=== PATIENT | female | born 1960 | race Caucasian/White ===

== ENCOUNTER 2023-09-06 19:53 | Inpatient (IN) | payer BC, SELFPAY ==
--- NOTE | ~2023-09-06 | CT_ITS ---
EXAMINATION: CT SOFT TISSUE NECK WITH CONTRAST CLINICAL INFORMATION: Reason thyroid. Pain COMPARISON: None available. TECHNIQUE: Following the intravenous administration of 100 mL of Omnipaque 350 intravenous contrast, helical imaging was performed in the axial plane with generation of coronal and sagittal reformatted images. This CT examination was performed using dose optimization techniques as appropriate, variously including the following: *Automated exposure control *Adjustment of mA and/or kV according to patient size (this includes techniques or standardized protocols for targeted exams where dose is matched to indication/reason for exam; i.e. extremities or head) *Use of iterative reconstruction technique DLP: 916 MGy-cm FINDINGS: The nasopharynx, oropharynx and hypopharynx are within normal limits. The parotid glands, and submandibular glands are unremarkable. There is a collection in the region of the anterior thyroid at the level of the thyroid isthmus measuring 2.7 x 1.5 x 1.5 cm. There is no significant lymph node enlargement. The vascular structures are grossly unremarkable. There is bilateral maxillary sinus mucosal thickening. There is a small sphenoid sinus opacity. The orbital structures are unremarkable. The visualized intracranial structures are unremarkable. The visualized upper lung esquivel are clear. There is skin thickening and subcutaneous emphysema along the lower anterior neck at the level of the thyroid. CT/CT soft tissue neck w IV con IMPRESSION: 1. There is a collection in the region of the anterior thyroid measuring 2.7 x 1.5 x 1.5 which may be postoperative patient history. Overlying soft tissue swelling is noted also likely postoperative. 2. No other significant abnormality seen.
--- NOTE | ~2023-09-06 | CT_ITS ---
EXAMINATION: CT ABDOMEN AND PELVIS WITHOUT CONTRAST CLINICAL INFORMATION: Abdominal pain COMPARISON: CT chest 09/07/2023. TECHNIQUE: Multidetector volumetric imaging was performed from the superior aspect of the liver through the pubic symphysis. Sagittal and coronal reformatted images were obtained on the technologist's workstation. This CT examination was performed using dose optimization techniques as appropriate, variously including the following: *Automated exposure control *Adjustment of mA and/or kV according to patient size (this includes techniques or standardized protocols for targeted exams where dose is matched to indication/reason for exam; i.e. extremities or head) *Use of iterative reconstruction technique DLP: 652 mGy-cm FINDINGS: There is a ill-defined opacity left lower lobe anterior segment with central cavitation and stranding extending to the pleural surface. The right lung base is clear. LIVER, GALLBLADDER, AND BILIARY TREE: The liver is normal in size, shape, and attenuation. No focal hepatic lesion or biliary ductal dilatation is present. The gallbladder is unremarkable with no evidence of radiopaque gallstones, gallbladder wall thickening, or obvious pericholecystic inflammatory changes. PANCREAS: Unremarkable. SPLEEN: Unremarkable. ADRENAL GLANDS: Unremarkable. KIDNEYS AND URETERS: The kidneys are normal in size, shape, and attenuation. No hydronephrosis, hydroureter, or calculi seen. No perinephric stranding. There is contrast opacifying bilateral calyces and proximal ureters without any dilation or intraluminal filling defect. Contrast visualizes from recent CT chest exam. BLADDER: The bladder is nondistended with excreted urinary contrast visualized. GASTROINTESTINAL TRACT: There is scattered stool and gas seen throughout the colon without any significant distention. Nonspecific intramural fat is seen in the ascending colon. The small bowel loops are normal caliber. Appendix is not visualized. ABDOMINAL WALL: A small medical hernia containing fat is noted. LYMPH NODES: No abnormal size retroperitoneal lymph nodes or mass seen. VASCULAR: Unremarkable. PELVIC VISCERA: There is a 2.6 cm left ovarian cyst. As no free fluid in the cul-de-sac. No pelvic lymph nodes or mass seen. OSSEOUS STRUCTURES: Degenerative disc changes with vacuum disc phenomena L3-for L4-L5 disc level. There is posterior spondylosis L3-L4 disc level. This are glass deformity L4 vertebra likely from old fracture. CT/CT abdomen pelvis wo IV con IMPRESSION: 1. No acute intra-abdominal process seen. 2. Mild constipation. 3. Left ovarian cyst. 4. Small umbilical hernia containing fat. 5. There is a ill-defined opacity left lower lobe anterior segment with central cavitation and stranding extending to the pleural surface. The fracture fragments includes infiltrate versus cavitating nodule. This was visualized on earlier CT chest exam. Also noted were multiple small pulmonary nodules. Recommend follow-up CT chest after antibiotic therapy in 6 weeks to 3 months Fleischner guidelines were followed.
--- NOTE | ~2023-09-06 | CT_ITS ---
EXAMINATION: CT ANGIOGRAM OF THE CHEST WITH AND WITHOUT CONTRAST (CT PULMONARY ANGIOGRAM FOR PE) CLINICAL INFORMATION: Reason for Exam SOB, tachycardia COMPARISON: None available. TECHNIQUE: Prior to contrast administration, noncontrast localization images were obtained. Subsequently, multidetector volumetric imaging was performed from the thoracic inlet to below the diaphragms following the administration of 85 mL Omnipaque 350 intravenous contrast. No contrast reaction reported Sagittal, coronal, and MIP oblique sagittal reformatted images were obtained on the CT workstation, uploaded to PACS, and reviewed. This CT examination was performed using dose optimization techniques as appropriate, variously including the following: *Automated exposure control *Adjustment of mA and/or kV according to patient size (this includes techniques or standardized protocols for targeted exams where dose is matched to indication/reason for exam; i.e. extremities or head) *Use of iterative reconstruction technique Total exam dose-length product 916 mGy-cm FINDINGS: QUALITY OF STUDY/CONTRAST BOLUS: Satisfactory. PULMONARY ARTERIES: No pulmonary emboli. THORACIC AORTA: No aneurysm. LUNG: There is bilateral bronchial thickening. There is a small left lower lung field infiltrate covering an area approximately 3 cm. There are essentially innumerable bilateral faint nodular densities measuring 1 to 5 mm. PLEURA: No pleural effusion or pneumothorax. MEDIASTINUM: Normal heart size. No pericardial effusion. There are a few nonspecific mediastinal lymph nodes measuring up to 1.6 cm. No evidence of septal bowing or right heart strain. CORONARY ARTERY CALCIFICATION: None visualized on this study. CHEST WALL/AXILLA: No axillary or internal mammary lymphadenopathy. OSSEOUS STRUCTURES: No acute or suspicious osseous abnormality. UPPER ABDOMEN: Unremarkable. No reflux of contrast into the hepatic veins to suggest elevated right heart pressures. CT/CT angio chest PE protocol IMPRESSION: 1. No evidence of PE. 2. Small left lower lung field infiltrate. Pneumonia is suspected. Consider a 1-2 month follow-up posttreatment. 3. There is bilateral bronchial thickening which may be seen with bronchitis. There are innumerable bilateral faint nodular densities measuring 1 to 5 cm possibly be secondary to to an atypical infectious process. 4. VTE: negative.
--- NOTE | ~2023-09-06 | XR_ITS ---
EXAMINATION: XR CHEST CLINICAL INFORMATION: Chest pain. COMPARISON: Chest radiograph dated 09/01/2023. TECHNIQUE: Frontal view of the chest was obtained. FINDINGS: Heart size is normal. The lungs are clear. No pleural effusion or pneumothorax. XR/XR chest 1V IMPRESSION: No acute cardiopulmonary disease.
[2023-09-06 20:09] VITALS: BP 170/84; BP 171/85; PULSE 110; PULSE 99; RESP 14; TEMP 36.8; O2SAT 94; O2SAT 99; BMI 34.4
--- NOTE | 2023-09-06 20:15 | ECG_ITS ---
Test Reason : SOB Blood Pressure : / mmHG Vent. Rate : 091 BPM Atrial Rate : 091 BPM P-R Int : 154 ms QRS Dur : 080 ms QT Int : 376 ms P-R-T Axes : 059 059 048 degrees QTc Int : 462 ms Normal sinus rhythm Nonspecific ST and T wave abnormality Abnormal ECG No previous ECGs available Referred By: Generic ED Physician Electronically Signed By:William Jean
--- NOTE | 2023-09-06 20:50 | ED_ITS ---
HPI - URI/Sore Throat General Chief Complaint: Upper Respiratory Symptoms Stated Complaint: SOB,resp symptoms x2wks,wheezing Time Seen by Provider: 09/06/23 20:11 History of Present Illness HPI Narrative: Patient is a 63-year-old female presents today with having coughing congestion upper respiratory symptoms shortness of breath that has been ongoing for over week. Had thyroid surgery July 28. Cough productive of whitish sputum. Had x-ray done earlier at urgent care did not show any acute infiltrate. Patient was given a treatment sent to the emergency department for further evaluation did not complain of any swelling in the legs. Does need to sit up because of the shortness of breath. There has no fever. Patient is vaccinated for COVID. No diaphoresis. No chest pain. Patient is from home. No history of asthma in the past. No history of congestive heart failure in the past. No heart attack in the past. Related Data Allergies Allergy/AdvReac Type Severity Reaction Status Date / Time No Known Allergies Allergy Verified 09/06/23 20:41 Review of Systems 2 Review of Systems: Positive coughing upper respiratory symptoms Yes all other systems are reviewed and are negative [facility] Past Medical History Attestation statement: The following information was validated with the patient. Social History Social History Advance Directives: No Advance Directives Information Provided: No Physical Exam 2 Vital Signs: Vital Signs: Last Vital Signs Temp 98.2 F 09/06/23 20:09 Pulse 113 H 09/06/23 21:24 Resp 33 H 09/06/23 21:24 BP 171/85 H 09/06/23 20:09 Pulse Ox 94 09/06/23 20:09 O2 Del Method Nasal Cannula 09/06/23 20:09 Oxygen Flow Rate 2 09/06/23 20:09 BMI result Body Mass Index 34.4 Appearance: Alert. Oriented X3. No acute distress. Eyes: Pupils equal, round and reactive to light. ENT: Pharynx normal. Neck: Normal inspection. Neck supple. No lymph nodes noted. No crepitus CVS: Normal heart rate and rhythm. Pulses normal. Normal S1 and S2 Respiratory: No respiratory distress. Breath sounds normal. Positive Wheezing. No rales Abdomen: Soft and nontender. No rigidity. No distention. good BS x4 Skin: Skin warm and dry. Normal skin color. Normal skin turgor. Extremities: No lower extremity edema. Neurovascular intact to all extremities. No Lacerations. No Rash Neuro: Oriented X 3. No motor deficit. No sensory deficit. Moving all extermities. No slurred speech Medications Administered Generic Name Dose Route Start Last Admin Trade Name Freq PRN Reason Stop Dose Admin Sodium Chloride 2,558.25 mls @ 2,558.25 mls/hr 09/06/23 21:58 09/06/23 22:05 Ns 30 ml/kg infuse over 1 hr (2558.25 ml) 09/06/23 22:57 2,558.25 mls/hr IV Administration .Q1H STA Discontinued Medications Generic Name Dose Route Start Last Admin Trade Name Freq PRN Reason Stop Dose Admin Albuterol Sulfate 2.5 mg/ 5 mg 09/06/23 20:42 09/06/23 21:23 Albuterol Sulfate 2.5 mg INHALE 09/06/23 20:43 5 mg ONCE ONE Administration Furosemide 40 mg 09/06/23 21:18 09/06/23 21:24 Furosemide 40 Mg/4 Ml Vial IVPUSH 09/06/23 21:19 40 mg ONCE ONE Administration Protocol Ceftriaxone Sodium 1 gm/ 50 mls @ 100 mls/hr 09/06/23 21:21 09/06/23 21:42 Sodium Chloride IV 09/06/23 21:50 100 mls/hr ONCE ONE Administration Methylprednisolone Sodium Succinate 125 mg 09/06/23 20:42 09/06/23 21:22 Methylprednisolone Sod Succ 125 Mg/2 Ml Vial IVPUSH 09/06/23 20:43 125 mg ONCE ONE Administration Morphine Sulfate 2 mg 09/06/23 21:27 09/06/23 21:51 Morphine Sulfate 2 Mg/Ml Cartridge IVPUSH 09/06/23 21:28 2 mg ONCE ONE Administration Protocol Nitroglycerin 1 inch 09/06/23 21:18 09/06/23 21:24 Nitroglycerin 2 % Oint 1 Gm Packet TRANSDERMA 09/06/23 21:19 1 inch ONCE ONE Administration Medical Decision Making Medical Decision Making MDM Narrative: Patient presented with shortness of breath. Wheezing bilaterally getting worse over the last 2 weeks unable to lie flat. An x-ray was done. My interpretation of the x-ray showed no acute infiltrates. Mild intravascular fullness. Patient after the x-ray went to the bathroom. On returning patient's O2 sat was in the 70 appeared blue wheezing more pronounced the diminished breath sounds bilaterally patient was placed on a non-rebreather mask. Respiratory was paged stat. She was started on BiPAP. Question if patient's symptoms secondary to flash pulmonary edema. Lasix was given. Nitro was given. Patient was started on BiPAP. Symptomatically patient improved dramatically cultures are obtained. Antibiotic was started for possible infection. Patient's lactate came back extremely elevated at 6.1. At this time felt patient unstable to give 30 cc/kilos of p.o. fluid. She was given a 7.5 mg albuterol treatment. Steroid was given. Flu RSV COVID are all pending. We will get an ABG on current settings as patient's symptom improving. At 22:30 patient's BNP came back less than 100 less likely this is congestive heart failure no evidence of flash pulmonary edema patient has been on BiPAP for the last half an hour with improvement in symptoms. ABG is being done. Lab Data 09/06/23 22:00 09/06/23 21:24 Labs: Lab Results 09/06/23 09/06/23 09/06/23 Range/Units 21:24 22:00 22:09 WBC 21.8 H (4.8-10.8) X10*3/uL RBC 5.25 (4.20-5.50) X10*6/uL Hgb 15.0 (12.0-16.0) g/dl Hct 45.3 (37.0-47.0) % MCV 86.3 (80.0-98.0) fL MCH 28.6 (27.0-33.0) pg MCHC 33.1 (31.0-35.0) g/dl RDW 12.6 (11.0-16.0) % Plt Count 333 (160-400) X10*3/uL MPV 11.3 (9.4-12.3) fL Immature Gran % (Auto) 0.4 (0.0-0.4) % Neut % (Auto) 77.4 H (45-73) % Lymph % (Auto) 12.0 L (20-40) % [place] % (Auto) 6.0 (2-11) % Eos % (Auto) 4.0 (0-4) % Baso % (Auto) 0.2 (0-2) % Lymph # (Auto) 2.6 (1.2-4.9) X10*3/uL [place] # (Auto) 1.3 H (0.1-1.2) X10*3/uL Eos # (Auto) 0.9 H (0.0-0.4) X10*3/uL Baso # (Auto) 0.0 (0.0-0.2) X10*3/uL Abs Immat Gran (auto) 0.09 H (0.00-0.03) X10*3/uL Absolute Neuts (auto) 16.9 H (2.0-8.3) x10*3/uL Absolute Nucleated RBC 0.000 (0.0-0.012) X10*3/uL Nucleated RBC % (auto) 0.0 (0.0-0.2) /100WBC O2 Saturation % ABG pH at Pt Temp (7.35-7.45) ABG pCO2 at Pt Temp (32-45) mmHg ABG pO2 at Pt Temp (83-108) mmHg ABG HCO3 (22-26) mmol/L ABG Base Excess (Actual) mmol/L Sodium 144 (135-145) mmol/L Potassium 3.9 (3.3-5.1) mmol/L Chloride 110 H (96-108) mmol/L Carbon Dioxide 20 L (22-29) mmol/L Anion Gap 18 (12-20) BUN 11 (9-16) mg/dL Creatinine 0.75 (0.5-1.4) mg/dL Estim Creat Clear Calc 78.7 Estimated GFR > 60 Random Glucose 163 H (60-115) mg/dL Lactic Acid 6.1 H* (0.5-2.0) mmol/L Calcium 9.9 (8.4-10.2) mg/dL Total Bilirubin 0.4 (0.0-1.0) mg/dL AST 14 (5-31) U/L ALT 15 (0-31) U/L Alkaline Phosphatase 119 H (39-117) U/L Troponin I High Sens < 2.7 (<3.5-17.0) ng/L B-Natriuretic Peptide 60 (<100) pg/mL Total Protein 7.8 (6.5-8.0) g/dL Albumin 4.7 (3.5-5.0) g/dL Urine Color Yellow Urine Appearance Clear Urine pH 6.0 (5.0-9.0) Ur Specific [place] <= 1.005 (1.005-1.025) Urine Protein Trace (Neg-Trace) mg/dL Urine Glucose (UA) Negative (Negative) mg/dL Urine Ketones Negative (Negative) mg/dL Urine Blood Negative (Negative) Urine Nitrite Negative (Negative) Ur Leukocyte Esterase Negative (Negative) Urine RBC 0-2 (0-2) /HPF Urine WBC 0-5 (0-5) /HPF Ur Squamous Epith Cells 0-2 (0-2) /HPF Urine Bacteria None Seen (None Seen) Hyaline Casts 0-2 (0-2) /LPF 09/06/23 Range/Units 22:33 WBC (4.8-10.8) X10*3/uL RBC (4.20-5.50) X10*6/uL Hgb (12.0-16.0) g/dl Hct (37.0-47.0) % MCV (80.0-98.0) fL MCH (27.0-33.0) pg MCHC (31.0-35.0) g/dl RDW (11.0-16.0) % Plt Count (160-400) X10*3/uL MPV (9.4-12.3) fL Immature Gran % (Auto) (0.0-0.4) % Neut % (Auto) (45-73) % Lymph % (Auto) (20-40) % [place] % (Auto) (2-11) % Eos % (Auto) (0-4) % Baso % (Auto) (0-2) % Lymph # (Auto) (1.2-4.9) X10*3/uL [place] # (Auto) (0.1-1.2) X10*3/uL Eos # (Auto) (0.0-0.4) X10*3/uL Baso # (Auto) (0.0-0.2) X10*3/uL Abs Immat Gran (auto) (0.00-0.03) X10*3/uL Absolute Neuts (auto) (2.0-8.3) x10*3/uL Absolute Nucleated RBC (0.0-0.012) X10*3/uL Nucleated RBC % (auto) (0.0-0.2) /100WBC O2 Saturation 94.0 % ABG pH at Pt Temp 7.31 L (7.35-7.45) ABG pCO2 at Pt Temp 41 (32-45) mmHg ABG pO2 at Pt Temp 77 L (83-108) mmHg ABG HCO3 21 L (22-26) mmol/L ABG Base Excess (Actual) -4.9 mmol/L Sodium (135-145) mmol/L Potassium (3.3-5.1) mmol/L Chloride (96-108) mmol/L Carbon Dioxide (22-29) mmol/L Anion Gap (12-20) BUN (9-16) mg/dL Creatinine (0.5-1.4) mg/dL Estim Creat Clear Calc Estimated GFR Random Glucose (60-115) mg/dL Lactic Acid (0.5-2.0) mmol/L Calcium (8.4-10.2) mg/dL Total Bilirubin (0.0-1.0) mg/dL AST (5-31) U/L ALT (0-31) U/L Alkaline Phosphatase (39-117) U/L Troponin I High Sens (<3.5-17.0) ng/L B-Natriuretic Peptide (<100) pg/mL Total Protein (6.5-8.0) g/dL Albumin (3.5-5.0) g/dL Urine Color Urine Appearance Urine pH (5.0-9.0) Ur Specific [place] (1.005-1.025) Urine Protein (Neg-Trace) mg/dL Urine Glucose (UA) (Negative) mg/dL Urine Ketones (Negative) mg/dL Urine Blood (Negative) Urine Nitrite (Negative) Ur Leukocyte Esterase (Negative) Urine RBC (0-2) /HPF Urine WBC (0-5) /HPF Ur Squamous Epith Cells (0-2) /HPF Urine Bacteria (None Seen) Hyaline Casts (0-2) /LPF Critical Care Time Critical Care Time Critical Care Time: Yes Total Critical Care Time: 40 Attestation: I have personally provided 40 minutes of critical care time exclusive of time spent on separately billable procedures. ?Time includes review of lab data, radiology results, discussion with consultants, and monitoring for potential decompensation. ?Interventions were performed as documented above Discharge Plan Discharge Clinical Impression: Respiratory failure Patient Disposition: Still a Patient
[2023-09-06] MEDS: methylPREDNISolone Sod Succ 125 MG/2 ML VIAL IVPUSH (21:22)
[2023-09-06] MEDS: Albuterol Sulfate 2.5 MG, Albuterol Sulfate (0.083%) 2.5 MG 5 MG INHALE (21:23)
[2023-09-06 21:24] VITALS: PULSE 113; RESP 33; O2SAT 92
[2023-09-06] MEDS: Furosemide 40 MG/4 ML VIAL IVPUSH (21:24)
[2023-09-06] MEDS: Nitroglycerin 2 % Oint 1 GM Packet 1 INCH TRANSDERMA (21:24)
[2023-09-06 21:30] VITALS: PULSE 117; RESP 38; O2SAT 96
[2023-09-06] MEDS: cefTRIAXone sodium 1 GM in 0.9 % Sodium Chloride 50 ML IV (21:42)
[2023-09-06 21:44] LABS: Alanine Aminotransferase 15 U/L (0-31); Albumin Level 4.7 g/dL (3.5-5.0); Alkaline Phosphatase 119 U/L (39-117); Anion Gap 18 (12-20); Aspartate Amino Transferase 14 U/L (5-31); Bilirubin Total 0.4 mg/dL (0.0-1.0); Blood Urea Nitrogen 11 mg/dL (9-16); Calcium 9.9 mg/dL (8.4-10.2); Carbon Dioxide 20 mmol/L (22-29); Chloride 110 mmol/L (96-108); Creatinine Clr Calc Pharmacy 78.7; Estimated Glomerular Filt Rate > 60; Glucose Random 163 mg/dL (60-115); Potassium 3.9 mmol/L (3.3-5.1); Sodium 144 mmol/L (135-145); Total Protein 7.8 g/dL (6.5-8.0)
[2023-09-06 21:46] LABS: Lactic Acid 6.1 mmol/L (0.5-2.0)
[2023-09-06] MEDS: Morphine Sulfate 2 MG/ML CARTRIDGE IVPUSH (21:51)
[2023-09-06 21:52] LABS: Troponin-I High Sensitivity < 2.7 ng/L (<3.5-17.0)
[2023-09-06 22:06] LABS: Basophils Percent Auto 0.2 % (0-2); Eosinophils Absolute Auto 0.9 X10*3/uL (0.0-0.4); Hematocrit 45.3 % (37.0-47.0); Imm Gran Abs Auto 0.09 X10*3/uL (0.00-0.03); Imm Gran Pct Auto 0.4 % (0.0-0.4); Lymphocytes Absolute Auto 2.6 X10*3/uL (1.2-4.9); Mean Corpuscular HGB Conc 33.1 g/dl (31.0-35.0); Mean Corpuscular Hemoglobin 28.6 pg (27.0-33.0); Mean Corpuscular Volume 86.3 fL (80.0-98.0); Mean Platelet Volume 11.3 fL (9.4-12.3); Monocytes Absolute Auto 1.3 X10*3/uL (0.1-1.2); Neutrophils Absolute Auto 16.9 x10*3/uL (2.0-8.3); Neutrophils Percent Auto 77.4 % (45-73); Platelet Count 333 X10*3/uL (160-400); Red Blood Count 5.25 X10*6/uL (4.20-5.50); Red Cell Distribution Width 12.6 % (11.0-16.0); White Blood Count 21.8 X10*3/uL (4.8-10.8)
[2023-09-06 22:10] LABS: MANUAL DIFF FLAG NO
[2023-09-06 22:22] LABS: Appearance Urine Clear; Color Urine Yellow; Glucose Urine UA Negative (Negative); Leukocyte Esterase Urine Negative (Negative); Nitrite Urine Negative (Negative); Specific Gravity - Urine <= 1.005 (1.005-1.025); Urine Blood Negative (Negative); Urine Ketones Negative (Negative); Urine Protein Trace mg/dL (Neg-Trace)
[2023-09-06 22:24] LABS: Bacteria Urine None Seen (None Seen); Hyaline Casts Urine 0-2 /LPF (0-2); RBC Urine 0-2 /HPF (0-2); Squamous Epithelial Cell Urine 0-2 /HPF (0-2); WBC Urine 0-5 /HPF (0-5)
[2023-09-06 22:25] LABS: B Type Natriuretic Peptide 60 pg/mL (<100)
[2023-09-06 22:39] LABS: ABG Base Excess -4.9 mmol/L; ABG HCO3 21 mmol/L (22-26); ABG pCO2 41 mmHg (32-45); ABG pH 7.31 (7.35-7.45); ABG pO2 77 mmHg (83-108)
[2023-09-06 23:07] VITALS: BP 114/79; PULSE 105; RESP 22; TEMP 36.4; O2SAT 91
[2023-09-06 23:17] LABS: Influenza A PCR NEGATIVE (Negative); Influenza B PCR NEGATIVE (Negative); Resp Syncy Virus RNA Qual PCR NEGATIVE (Negative); SARS COV2 PCR INHOUSE NEGATIVE (Negative)
[2023-09-06 23:27] LABS: Reflex Lactate? Lactic Acid Added
[2023-09-06 23:45] LABS: Venous Blood Gas Refer to POC result
[2023-09-06 23:46] VITALS: BP 118/76; PULSE 105; RESP 24; TEMP 36.6
[2023-09-06 23:46] LABS: VBG Base Excess -4.1 mmol/L; VBG HCO3 19 mmol/L (22-26); VBG pCO2 30 mmHg; VBG pH 7.41 (7.32-7.43); VBG pO2 91 mmHg
[2023-09-07] VITALS (31 sets, daily range): BP systolic 95–156; BP diastolic 28–91; PULSE 80–122; RESP 12–32; TEMP 36.2–36.9; O2SAT 4–99; BMI 34.6
[2023-09-07] MEDS: Albuterol Sulfate 2.5 MG, Albuterol/Iprat 2.5/0.5MG 3 ML 3 ML INHALE (00:08)
[2023-09-07 00:34] LABS: ~Lactic Acid-LAB USE ONLY 2.3 mmol/L (0.5-2.0)
[2023-09-07 00:36] LABS: ABG Refer to POC result
[2023-09-07] MEDS: Albuterol Sulfate 2.5 MG, Albuterol Sulfate (0.083%) 2.5 MG 5 MG INHALE (00:46)
[2023-09-07 01:41] LABS: Reflex Lactate? 2 Y
[2023-09-07] MEDS: Albuterol/Iprat 2.5/0.5MG 3 ML AMPUL.NEB INHALE ×2 (01:45→05:05)
[2023-09-07] MEDS: Morphine Sulfate 2 MG/ML CARTRIDGE IVPUSH (02:11)
[2023-09-07] MEDS: iohexoL 350 MG/ML 100 ML INFUS..BTL 85 ML IV (03:12)
[2023-09-07] MEDS: LORazepam 2 MG/ML VIAL 1 MG IVPUSH ×2 (03:18→06:38)
[2023-09-07] MEDS: Albuterol Sulfate (0.083%) 2.5 MG/3 ML VIAL.NEB INHALE (03:34)
[2023-09-07 04:31] LABS: ~Lactic Acid-LAB USE ONLY 3.4 mmol/L (0.5-2.0)
[2023-09-07 05:55] LABS: ABG Base Excess -7.2 mmol/L; ABG HCO3 20 mmol/L (22-26); ABG pCO2 47 mmHg (32-45); ABG pH 7.23 (7.35-7.45); ABG pO2 119 mmHg (83-108)
[2023-09-07 06:11] LABS: ABG Refer to POC result
[2023-09-07 06:18] LABS: Amphetamine Screen Urine Not Detected (Not Detect); Barbiturates, Urine Not Detected (Not Detect); Benzodiazepines Screen Urine Not Detected (Not Detect); Cannabinoid Screen Urine Not Detected (Not Detect); Cocaine Screen Urine Not Detected (Not Detect); Fentanyl, urine Not Detected (Not Detect); Opiate Screen Urine Not Detected (Not Detect); Phencyclidine Screen Urine Not Detected (Not Detect)
[2023-09-07] MEDS: Acetaminophen 325 MG TABLET 975 MG PO (06:38)
[2023-09-07] MEDS: Benzonatate 100 MG CAPSULE 200 MG PO (06:38)
[2023-09-07 06:49] LABS: Basophils Percent Auto 0.1 % (0-2); Hematocrit 42.5 % (37.0-47.0); Hemoglobin 13.8 g/dl (12.0-16.0); Imm Gran Abs Auto 0.11 X10*3/uL (0.00-0.03); Imm Gran Pct Auto 0.6 % (0.0-0.4); Lymphocytes Absolute Auto 0.6 X10*3/uL (1.2-4.9); Lymphocytes Percent Auto 3.5 % (20-40); MANUAL DIFF FLAG SCAN; Mean Corpuscular HGB Conc 32.5 g/dl (31.0-35.0); Mean Corpuscular Hemoglobin 28.6 pg (27.0-33.0); Mean Platelet Volume 11.3 fL (9.4-12.3); Monocytes Absolute Auto 0.2 X10*3/uL (0.1-1.2); Monocytes Percent Auto 1.1 % (2-11); Neutrophils Absolute Auto 16.7 x10*3/uL (2.0-8.3); Neutrophils Percent Auto 94.7 % (45-73); Platelet Count 347 X10*3/uL (160-400); Red Blood Count 4.83 X10*6/uL (4.20-5.50); Red Cell Distribution Width 13.1 % (11.0-16.0); SCAN SMEAR FLAG 1; White Blood Count 17.6 X10*3/uL (4.8-10.8)
[2023-09-07 06:51] LABS: Venous Blood Gas Refer to POC result
[2023-09-07 06:53] LABS: VBG Base Excess -6.4 mmol/L; VBG HCO3 21 mmol/L (22-26); VBG pCO2 50 mmHg; VBG pH 7.23 (7.32-7.43); VBG pO2 60 mmHg
[2023-09-07 07:10] LABS: Acetaminophen LAB < 3 mcg/mL (<30); Anion Gap 18 (12-20); Blood Urea Nitrogen 12 mg/dL (9-16); Calcium 7.8 mg/dL (8.4-10.2); Carbon Dioxide 21 mmol/L (22-29); Chloride 109 mmol/L (96-108); Creatinine Clr Calc Pharmacy 71.1; Estimated Glomerular Filt Rate > 60; Glucose Random 207 mg/dL (60-115); Potassium 4.1 mmol/L (3.3-5.1); Salicylate < 5.0 mg/dL (15-30); Sodium 144 mmol/L (135-145)
[2023-09-07 07:24] LABS: SLIDE REVIEW VERIFIED
--- NOTE | 2023-09-07 09:00 | PC.NURSE ---
pt on Bipap - tolerative well. brought to CT scan without incident. mom at bedside. pt using periwick at this time d/t inability to verbalize need to void. pt A&o x3. plan to be admitted. pt and family at bedisde aware of plan.
[2023-09-07] MEDS: Heparin Sodium,Porcine 5,000 UNIT/ML VIAL 5000 UNIT SUBCUT ×2 (09:31→17:50)
--- NOTE | 2023-09-07 10:06 | PC.RT ---
RT NOTE: Pt transported from ED to ICU on Bipap and nic well. Pt had coughing fit and RT placed pt on HFNC 35L/30% and pt nic well. Provider turned off flow to HFNC with RT unaware. RT found pt on HFNC 0L/30% SATs 88%. RT placed pt on Nasal cannula 4L. Pt nic well and SATs >95%.
--- NOTE | 2023-09-07 10:22 | PHA.MEDREC ---
Pharmacy Consult ? Medication Reconciliation Pharmacy has completed the medication reconciliation. Spoke with patient, she does not take her Wixela and states she takes the methylphenidate prn for dullness from sertraline.
[2023-09-07] MEDS: levoFLOXacin/D5W 750 MG/150 ML PIGGYBACK 100 MG IV (11:16)
[2023-09-07 11:20] LABS: ABG Base Excess -2.9 mmol/L; ABG HCO3 21 mmol/L (22-26); ABG pCO2 36 mmHg (32-45); ABG pH 7.37 (7.35-7.45); ABG pO2 57 mmHg (83-108)
[2023-09-07 12:01] LABS: ABG Refer to POC result
--- NOTE | 2023-09-07 12:55 | P.HPCC_ITS ---
History of Present Illness Date of Service: 09/07/23 Chief Complaint: Upper respiratory symptoms, metabolic acidosis, hypoxia 64-year-old lady with underlying history of hypertension and thyroid surgery in the beginning of July admitted on 09/07/2023 with 1 week history of upper respiratory symptoms and cough productive of whitish sputum. On ER evaluation patient is significantly dyspnea with increased work of breathing and metabolic acidosis requiring BiPAP support. Initially unable to titrate of BiPAP and admitted to intensive care unit. In the intensive care unit patient titrated down to [address] abdomen pelvis with no acute findings. CT chest with possible developping pneumonia. Patient treated with empiric Levaquin. Review of Systems 2 Constitutional: Constitutional: Denies daytime sleepiness, Denies excessive sweating, Denies fatigue, Denies fever(s), Denies lethargy, Denies malaise, Denies night sweats, Denies snoring and Denies weight loss Eyes: Eyes: Denies blurry vision and Denies itchy eyes ENT: Denies nasal congestion, Denies post nasal drip, Denies sinus pain, Denies sinus pressure and Denies other ( Thrush) Cardiovascular: Cardiovascular: Denies chest pain, Denies pedal edema, Reports dyspnea, Reports orthopnea and Denies paroxysmal nocturnal dyspnea Respiratory: Respiratory: Reports cough, Denies hemoptysis, Reports excessive phlegm production, Reports dyspnea, Denies snoring and Denies wheezing Gastrointestinal: Gastrointestinal: Denies abdominal pain and Denies heartburn Musculoskeletal: Musculoskeletal: Denies myalgias, Denies arthralgias and Denies joint swelling Integumentary/Breasts: Skin/Breast: Denies rash Neurologic: Denies memory loss and Denies seizure-like activity Psychiatric: Psychiatric: Denies abnormal sleep pattern, Denies anxiety and Denies memory loss Endocrine: Endocrine: Denies excessive sweating, Denies fatigue and Denies heat intolerance Hematologic/Lymphatic: Hematologic/Lymphatic: Denies easy bruising Allergic/Immunologic: Allergic/Immunologic: Denies itchy eyes, Denies seasonal rhinorrhea and Denies wheezing PMFSH Social History Social History Household Members: None Housing: Condominium Do you presently have visiting nurse or other home services: No Patient Tobacco Use Status: Former Tobacco user Quit Date: 30 years ago Tobacco use type: Cigarette Smoked in Last 30 Days: No e-Cigarette/Vaping Use: Former Use Patient Interested in Nicotine Replacement: No Patient Given Instructions on How to Stop Smoking: No (NA) Second Hand Smoke Exposure: No Use of substances other than those prescribed or required for medical reasons: No Currently Displaying Signs/Symptoms of Drug Intoxication Withdrawal: No Any prior treatment program specific to substance use: No Have you been hit, kicked, punched, or otherwise hurt by someone within the past year? If so, by whom?: No Do you feel safe in your current relationship?: No Current Relationship Is there a partner from a previous relationship who is making you feel unsafe now?: No Are you made to feel afraid or neglected: No Spiritual Healthcare Practices: meditation Advance Directives: No Advance Directives Information Provided: No Do you have thoughts of harming others: None Do you have a plan to hurt others: No Plan Recently lost weight without trying: No Eating poorly because of decreased appetite: No Nutrition Risks: No Nutritional Risk Patient : No : No Poor oral hygiene: No Meds Allergies Allergy/AdvReac Type Severity Reaction Status Date / Time No Known Allergies Allergy Verified 09/06/23 20:41 Active Medications: Current Medications Heparin Sodium (Porcine) (Heparin Sodium,Porcine 5,000 Unit/Ml Vial) 5,000 unit SUBCUT Q8H [facility] Last Admin: 09/07/23 09:31 Dose: 5,000 unit Levofloxacin (Levaquin) 750 mg in 150 mls @ 100 mls/hr IV Q24H [facility] Last Admin: 09/07/23 11:16 Dose: 100 mls/hr Home Medications Medication Instructions Recorded Confirmed Last Taken Type albuterol sulfate 90 mcg/actuation 2 puff inhalation QID PRN wheezing 09/07/23 09/07/23 Unknown History aerosol inhaler amiloride 5 mg tablet 10 mg PO DAILY 09/07/23 09/07/23 Unknown History amlodipine 10 mg tablet 10 mg PO DAILY 09/07/23 09/07/23 Unknown History calcium citrate 200 mg (950 mg) 200 mg PO DAILY 09/07/23 09/07/23 Unknown History tablet cholecalciferol (vitamin D3) 50 50 mcg PO DAILY 09/07/23 09/07/23 Unknown History mcg (2,000 unit) tablet (Vitamin D3) coenzyme Q10 200 mg capsule (Co 200 mg PO DAILY 09/07/23 09/07/23 Unknown History Q-10) cyanocobalamin (vitamin B-12) 1,000 mcg PO DAILY 09/07/23 09/07/23 Unknown History 1,000 mcg tablet (Vitamin B-12) ibuprofen 200 mg tablet 400 mg PO Q8H PRN Headache 09/07/23 09/07/23 Unknown History loperamide 2 mg capsule 2 mg PO QID PRN Diarrhea 09/07/23 09/07/23 Unknown History methylphenidate HCl 5 mg tablet 5 mg PO BID PRN ATTENTION 09/07/23 09/07/23 Unknown History metoprolol succinate 100 mg 200 mg PO DAILY 09/07/23 09/07/23 Unknown History tablet,extended release 24 hr pravastatin 40 mg tablet 40 mg PO DAILY 09/07/23 09/07/23 Unknown History sertraline 100 mg tablet 100 mg PO DAILY 09/07/23 09/07/23 Unknown History Physical Exam 2 Vital Signs: Vital Signs: Last Vital Signs Temp 98.2 F 09/07/23 12:00 Pulse 95 09/07/23 12:00 Resp 21 H 09/07/23 12:00 BP 111/63 09/07/23 12:00 Pulse Ox 94 09/07/23 12:00 O2 Del Method Nasal Cannula 09/07/23 11:22 O2 Flow Rate 4 09/07/23 12:00 FiO2 36 09/07/23 10:05 Oxygen Flow Rate 8 09/07/23 11:22 BMI result Body Mass Index 34.6 Const: General: no acute distress and alert Nutritional Appearance: not obese Orientation/consciousness: Other orientation findings ( oriented) HEENT: Head: Yes atraumatic Eyes: General: appearance normal, both eyes and all related structures S clerae: sclerae normal EOM: EOMs intact bilaterally Neck: Neck: Yes supple Lymphatic: no lymphadenopathy noted Resp: Effort & Inspection: normal respiratory effort and no use of accessory muscles Auscultation: clear to auscultation bilaterally Cardio: Rate: regular rate Rhythm: regular rhythm Heart sounds: no gallops, no murmurs and no rubs Skin: General skin exam: other ( warm) Extrem: General: No clubbing, No cyanosis and No edema Results Labs 09/07/23 06:43 09/07/23 06:43 Labs: Laboratory Results - last 24 hr 09/06/23 09/06/23 09/06/23 21:24 22:00 22:09 MCV 86.3 MCH 28.6 MCHC 33.1 RDW 12.6 Plt Count 333 MPV 11.3 Immature Gran % (Auto) 0.4 Neut % (Auto) 77.4 H Lymph % (Auto) 12.0 L [place] % (Auto) 6.0 Eos % (Auto) 4.0 Baso % (Auto) 0.2 Lymph # (Auto) 2.6 [place] # (Auto) 1.3 H Eos # (Auto) 0.9 H Baso # (Auto) 0.0 Abs Immat Gran (auto) 0.09 H Absolute Neuts (auto) 16.9 H Absolute Nucleated RBC 0.000 Nucleated RBC % (auto) 0.0 Smear Tech's Comments O2 Saturation ABG pH at Pt Temp ABG pCO2 at Pt Temp ABG pO2 at Pt Temp ABG HCO3 ABG Base Excess (Actual) VBG pH VBG pCO2 VBG pO2 VBG HCO3 VBG O2 Saturation VBG Base Excess Anion Gap 18 Estim Creat Clear Calc 78.7 Estimated GFR > 60 Random Glucose 163 H Lactic Acid 6.1 H* Lactic Acid F/U @ 2Hr Lactic Acid F/U @ 4Hr Calcium 9.9 Total Bilirubin 0.4 AST 14 ALT 15 Alkaline Phosphatase 119 H Troponin I High Sens < 2.7 B-Natriuretic Peptide 60 Total Protein 7.8 Albumin 4.7 TSH 1.50 Urine Color Yellow Urine Appearance Clear Urine pH 6.0 Ur Specific [place] <= 1.005 Urine Protein Trace Urine Glucose (UA) Negative Urine Ketones Negative Urine Blood Negative Urine Nitrite Negative Ur Leukocyte Esterase Negative Urine RBC 0-2 Urine WBC 0-5 Ur Squamous Epith Cells 0-2 Urine Bacteria None Seen Hyaline Casts 0-2 Salicylates Urine Opiates Screen Not Detected Urine Fentanyl Screen Not Detected Acetaminophen Ur Barbiturates Screen Not Detected Ur Phencyclidine Scrn Not Detected Ur Amphetamines Screen Not Detected U Benzodiazepines Scrn Not Detected Urine Cocaine Screen Not Detected U Marijuana (THC) Screen Not Detected Influenza Type A (PCR) NEGATIVE Influenza Type B (PCR) NEGATIVE RSV RNA Qual (PCR) NEGATIVE SARS-CoV-2 RNA (RT-PCR) NEGATIVE 09/06/23 09/06/23 09/06/23 22:33 23:36 23:39 MCV MCH MCHC RDW Plt Count MPV Immature Gran % (Auto) Neut % (Auto) Lymph % (Auto) [place] % (Auto) Eos % (Auto) Baso % (Auto) Lymph # (Auto) [place] # (Auto) Eos # (Auto) Baso # (Auto) Abs Immat Gran (auto) Absolute Neuts (auto) Absolute Nucleated RBC Nucleated RBC % (auto) Smear Tech's Comments O2 Saturation 94.0 ABG pH at Pt Temp 7.31 L ABG pCO2 at Pt Temp 41 ABG pO2 at Pt Temp 77 L ABG HCO3 21 L ABG Base Excess (Actual) -4.9 VBG pH 7.41 VBG pCO2 30 VBG pO2 91 VBG HCO3 19 L VBG O2 Saturation 99.0 VBG Base Excess -4.1 Anion Gap Estim Creat Clear Calc Estimated GFR Random Glucose Lactic Acid Lactic Acid F/U @ 2Hr 2.3 H* Lactic Acid F/U @ 4Hr Calcium Total Bilirubin AST ALT Alkaline Phosphatase Troponin I High Sens B-Natriuretic Peptide Total Protein Albumin TSH Urine Color Urine Appearance Urine pH Ur Specific [place] Urine Protein Urine Glucose (UA) Urine Ketones Urine Blood Urine Nitrite Ur Leukocyte Esterase Urine RBC Urine WBC Ur Squamous Epith Cells Urine Bacteria Hyaline Casts Salicylates Urine Opiates Screen Urine Fentanyl Screen Acetaminophen Ur Barbiturates Screen Ur Phencyclidine Scrn Ur Amphetamines Screen U Benzodiazepines Scrn Urine Cocaine Screen U Marijuana (THC) Screen Influenza Type A (PCR) Influenza Type B (PCR) RSV RNA Qual (PCR) SARS-CoV-2 RNA (RT-PCR) 09/07/23 09/07/23 09/07/23 04:01 05:49 06:43 MCV 88.0 MCH 28.6 MCHC 32.5 RDW 13.1 Plt Count 347 MPV 11.3 Immature Gran % (Auto) 0.6 H Neut % (Auto) 94.7 H Lymph % (Auto) 3.5 L [place] % (Auto) 1.1 L Eos % (Auto) 0.0 Baso % (Auto) 0.1 Lymph # (Auto) 0.6 L [place] # (Auto) 0.2 Eos # (Auto) 0.0 Baso # (Auto) 0.0 Abs Immat Gran (auto) 0.11 H Absolute Neuts (auto) 16.7 H Absolute Nucleated RBC 0.000 Nucleated RBC % (auto) 0.0 Smear Tech's Comments VERIFIED O2 Saturation 99.0 ABG pH at Pt Temp 7.23 L ABG pCO2 at Pt Temp 47 H ABG pO2 at Pt Temp 119 H ABG HCO3 20 L ABG Base Excess (Actual) -7.2 VBG pH VBG pCO2 VBG pO2 VBG HCO3 VBG O2 Saturation VBG Base Excess Anion Gap 18 Estim Creat Clear Calc 71.1 Estimated GFR > 60 Random Glucose 207 H Lactic Acid Lactic Acid F/U @ 2Hr Lactic Acid F/U @ 4Hr 3.4 H* Calcium 7.8 L D Total Bilirubin AST ALT Alkaline Phosphatase Troponin I High Sens B-Natriuretic Peptide Total Protein Albumin TSH Urine Color Urine Appearance Urine pH Ur Specific [place] Urine Protein Urine Glucose (UA) Urine Ketones Urine Blood Urine Nitrite Ur Leukocyte Esterase Urine RBC Urine WBC Ur Squamous Epith Cells Urine Bacteria Hyaline Casts Salicylates < 5.0 L Urine Opiates Screen Urine Fentanyl Screen Acetaminophen < 3 Ur Barbiturates Screen Ur Phencyclidine Scrn Ur Amphetamines Screen U Benzodiazepines Scrn Urine Cocaine Screen U Marijuana (THC) Screen Influenza Type A (PCR) Influenza Type B (PCR) RSV RNA Qual (PCR) SARS-CoV-2 RNA (RT-PCR) 09/07/23 09/07/23 06:46 11:13 MCV MCH MCHC RDW Plt Count MPV Immature Gran % (Auto) Neut % (Auto) Lymph % (Auto) [place] % (Auto) Eos % (Auto) Baso % (Auto) Lymph # (Auto) [place] # (Auto) Eos # (Auto) Baso # (Auto) Abs Immat Gran (auto) Absolute Neuts (auto) Absolute Nucleated RBC Nucleated RBC % (auto) Smear Tech's Comments O2 Saturation 90.0 ABG pH at Pt Temp 7.37 ABG pCO2 at Pt Temp 36 ABG pO2 at Pt Temp 57 L ABG HCO3 21 L ABG Base Excess (Actual) -2.9 VBG pH 7.23 L VBG pCO2 50 VBG pO2 60 VBG HCO3 21 L VBG O2 Saturation 87.0 VBG Base Excess -6.4 Anion Gap Estim Creat Clear Calc Estimated GFR Random Glucose Lactic Acid Lactic Acid F/U @ 2Hr Lactic Acid F/U @ 4Hr Calcium Total Bilirubin AST ALT Alkaline Phosphatase Troponin I High Sens B-Natriuretic Peptide Total Protein Albumin TSH Urine Color Urine Appearance Urine pH Ur Specific [place] Urine Protein Urine Glucose (UA) Urine Ketones Urine Blood Urine Nitrite Ur Leukocyte Esterase Urine RBC Urine WBC Ur Squamous Epith Cells Urine Bacteria Hyaline Casts Salicylates Urine Opiates Screen Urine Fentanyl Screen Acetaminophen Ur Barbiturates Screen Ur Phencyclidine Scrn Ur Amphetamines Screen U Benzodiazepines Scrn Urine Cocaine Screen U Marijuana (THC) Screen Influenza Type A (PCR) Influenza Type B (PCR) RSV RNA Qual (PCR) SARS-CoV-2 RNA (RT-PCR) Imaging Radiologist's Impressions: Impressions Chest X-Ray 09/06/23 21:00 IMPRESSION: No acute cardiopulmonary disease. Chest CTA 09/07/23 03:10 IMPRESSION: 1. No evidence of PE. 2. Small left lower lung field infiltrate. Pneumonia is suspected. Consider a 1-2 month follow-up posttreatment. 3. There is bilateral bronchial thickening which may be seen with bronchitis. There are innumerable bilateral faint nodular densities measuring 1 to 5 cm possibly be secondary to to an atypical infectious process. 4. VTE: negative. Soft Tissue Neck CT 09/07/23 03:10 IMPRESSION: 1. There is a collection in the region of the anterior thyroid measuring 2.7 x 1.5 x 1.5 which may be postoperative patient history. Overlying soft tissue swelling is noted also likely postoperative. 2. No other significant abnormality seen. Abdomen/Pelvis CT 09/07/23 08:26 IMPRESSION: 1. No acute intra-abdominal process seen. 2. Mild constipation. 3. Left ovarian cyst. 4. Small umbilical hernia containing fat. 5. There is a ill-defined opacity left lower lobe anterior segment with central cavitation and stranding extending to the pleural surface. The fracture fragments includes infiltrate versus cavitating nodule. This was visualized on earlier CT chest exam. Also noted were multiple small pulmonary nodules. Recommend follow-up CT chest after antibiotic therapy in 6 weeks to 3 months Fleischner guidelines were followed. Assessment and Plan (1) Acute metabolic acidosis: Status: Acute (2) Acute hypoxic respiratory failure: Status: Acute (3) Pneumonia: Status: Acute Plan Assessment: 63-year-old lady admitted with respiratory distress, metabolic acidosis, and acute hypoxic respiratory failure with possible developing pneumonia. Plan: Neuro: No acute issues. Cardiac: No acute issues. Pulmonary: Titrated off BiPAP. CT chest reviewed. Empirically treated for community-acquired pneumonia. No evidence of pulmonary embolism. Continue to titrate off supplemental oxygen as tolerated. Renal: Metabolic acidosis of unclear etiology, may be related to over the loose treatment with albuterol with development of lactic acidosis. Improving. Continue to monitor renal indices and urine output. Endo: No acute issues. GI: No acute issues. ID: No acute issues Heme/Onc: No acute issues. Psych: No acute issues. Miscellaneous: No acute issues. Prophylaxis: Heparin Diet: Regular
[2023-09-07 16:39] LABS: MANUAL DIFF FLAG NO
[2023-09-07 16:43] LABS: VBG Base Excess 0.7 mmol/L; VBG HCO3 22 mmol/L (22-26); VBG pCO2 28 mmHg; VBG pO2 68 mmHg
[2023-09-07 16:43] LABS: Basophils Percent Auto 0.2 % (0-2); Eosinophils Percent Auto 0.1 % (0-4); Hematocrit 38.4 % (37.0-47.0); Hemoglobin 12.7 g/dl (12.0-16.0); Imm Gran Abs Auto 0.06 X10*3/uL (0.00-0.03); Imm Gran Pct Auto 0.5 % (0.0-0.4); Lymphocytes Absolute Auto 1.1 X10*3/uL (1.2-4.9); Lymphocytes Percent Auto 8.7 % (20-40); Mean Corpuscular HGB Conc 33.1 g/dl (31.0-35.0); Mean Corpuscular Volume 87.7 fL (80.0-98.0); Mean Platelet Volume 11.5 fL (9.4-12.3); Monocytes Absolute Auto 0.9 X10*3/uL (0.1-1.2); Monocytes Percent Auto 7.2 % (2-11); Neutrophils Percent Auto 83.3 % (45-73); Platelet Count 241 X10*3/uL (160-400); Red Blood Count 4.38 X10*6/uL (4.20-5.50); Red Cell Distribution Width 13.2 % (11.0-16.0)
[2023-09-07 16:43] LABS: Venous Blood Gas Refer to POC result
[2023-09-07 16:56] LABS: Alanine Aminotransferase 13 U/L (0-31); Albumin Level 3.9 g/dL (3.5-5.0); Alkaline Phosphatase 93 U/L (39-117); Anion Gap 15 (12-20); Aspartate Amino Transferase 16 U/L (5-31); Bilirubin Total 0.3 mg/dL (0.0-1.0); Blood Urea Nitrogen 14 mg/dL (9-16); Carbon Dioxide 23 mmol/L (22-29); Chloride 110 mmol/L (96-108); Creatinine Clr Calc Pharmacy 89.8; Estimated Glomerular Filt Rate > 60; Glucose Random 104 mg/dL (60-115); Potassium 4.3 mmol/L (3.3-5.1); Sodium 144 mmol/L (135-145); Total Protein 6.6 g/dL (6.5-8.0)
[2023-09-08] VITALS (16 sets, daily range): BP systolic 122–158; BP diastolic 55–79; PULSE 70–113; RESP 14–27; TEMP 36.1–36.8; O2SAT 91–97; BMI 34.8
[2023-09-08] MEDS: Heparin Sodium,Porcine 5,000 UNIT/ML VIAL 5000 UNIT SUBCUT ×4 (00:10→23:03)
[2023-09-08 04:41] LABS: VBG Base Excess 1.2 mmol/L; VBG HCO3 25 mmol/L (22-26); VBG pCO2 37 mmHg; VBG pH 7.43 (7.32-7.43); VBG pO2 50 mmHg; Venous Blood Gas Refer to POC result
[2023-09-08 05:43] LABS: MANUAL DIFF FLAG NO
[2023-09-08 05:46] LABS: Basophils Percent Auto 0.3 % (0-2); Eosinophils Absolute Auto 0.3 X10*3/uL (0.0-0.4); Eosinophils Percent Auto 2.6 % (0-4); Hemoglobin 12.3 g/dl (12.0-16.0); Imm Gran Abs Auto 0.06 X10*3/uL (0.00-0.03); Imm Gran Pct Auto 0.5 % (0.0-0.4); Lymphocytes Absolute Auto 1.8 X10*3/uL (1.2-4.9); Lymphocytes Percent Auto 14.9 % (20-40); Mean Corpuscular HGB Conc 32.4 g/dl (31.0-35.0); Mean Corpuscular Hemoglobin 28.6 pg (27.0-33.0); Mean Corpuscular Volume 88.4 fL (80.0-98.0); Mean Platelet Volume 11.5 fL (9.4-12.3); Monocytes Absolute Auto 0.9 X10*3/uL (0.1-1.2); Monocytes Percent Auto 7.5 % (2-11); Neutrophils Absolute Auto 9.2 x10*3/uL (2.0-8.3); Neutrophils Percent Auto 74.2 % (45-73); Platelet Count 250 X10*3/uL (160-400); Red Cell Distribution Width 13.2 % (11.0-16.0); White Blood Count 12.3 X10*3/uL (4.8-10.8)
[2023-09-08 06:02] LABS: Albumin Level 3.8 g/dL (3.5-5.0); Anion Gap 13 (12-20); Blood Urea Nitrogen 11 mg/dL (9-16); Carbon Dioxide 24 mmol/L (22-29); Chloride 112 mmol/L (96-108); Creatinine Clr Calc Pharmacy 87.1; Estimated Glomerular Filt Rate > 60; Glucose Random 111 mg/dL (60-115); Magnesium 2.2 mg/dL (1.6-2.6); Phosphorus 2.3 mg/dL (2.7-4.5); Potassium 3.8 mmol/L (3.3-5.1); Sodium 145 mmol/L (135-145)
--- NOTE | 2023-09-08 07:53 | PC.RT ---
Pt awake and alert in bed eating breakfast. Pt cont on 4 lpm n/c. Bipap and highflow cont on standby at bedside. LC cleaer bilat, rr 16, spo2 95% and hr 104. No resp distress noted.
[2023-09-08] MEDS: Calcium Gluconate/NaCl,Iso-Osm 1 GM/50 ML PLAST..BAG IV (08:10)
[2023-09-08] MEDS: Potassium Phosphate/NS 15 MMOL/250 ML PLAST..BAG 62.5 MMOL IV (08:22)
--- NOTE | 2023-09-08 09:36 | P.PNCC_ITS ---
Subjective Subjective Date of Service: 09/08/23 Interval History: 64-year-old lady with underlying history of hypertension and thyroid surgery in the beginning of July admitted on 09/07/2023 with 1 week history of upper respiratory symptoms and cough productive of whitish sputum. On ER evaluation patient is significantly dyspnea with increased work of breathing and metabolic acidosis requiring BiPAP support. Initially unable to titrate of BiPAP and admitted to intensive care unit. In the intensive care unit patient titrated down to [address] abdomen pelvis with no acute findings. CT chest with possible developping pneumonia. Patient treated with empiric Levaquin. No events overnight. Critical Care Time (minutes): 0 Physical Exam 2 Vital Signs: Vital Signs: Last Vital Signs Temp 98.3 F 09/08/23 08:00 Pulse 79 09/08/23 09:00 Resp 20 09/08/23 09:00 BP 132/60 09/08/23 09:00 Pulse Ox 93 09/08/23 09:00 O2 Del Method Nasal Cannula 09/08/23 09:00 O2 Flow Rate 4 09/08/23 09:00 FiO2 36 09/07/23 10:05 Oxygen Flow Rate 8 09/07/23 11:22 BMI result Body Mass Index 34.8 Const: General: no acute distress, alert and awake Eyes: Sclerae: sclerae normal EOM: EOMs intact bilaterally Neck: Neck: Yes no lymphadenopathy, Yes trachea midline and Yes supple Resp: Effort & Inspection: normal respiratory effort and no respiratory distress Auscultation: clear to auscultation bilaterally Cardio: Rate: regular rate Rhythm: regular rhythm Heart sounds: no gallops, no murmurs and no rubs GI: Palpation (GI): Soft to palpation and Other GI palpation findings present ( Nontender) Auscultation: normal bowel sounds Extrem: General: Yes no pedal edema, No clubbing and No cyanosis Objective Data Labs 09/08/23 04:31 09/08/23 04:31 Labs: Laboratory Results - last 24 hr 09/07/23 09/07/23 09/07/23 11:13 16:33 16:37 WBC 12.0 H RBC 4.38 Hgb 12.7 Hct 38.4 MCV 87.7 MCH 29.0 MCHC 33.1 RDW 13.2 Plt Count 241 D MPV 11.5 Immature Gran % (Auto) 0.5 H Neut % (Auto) 83.3 H Lymph % (Auto) 8.7 L [place] % (Auto) 7.2 Eos % (Auto) 0.1 Baso % (Auto) 0.2 Lymph # (Auto) 1.1 L [place] # (Auto) 0.9 Eos # (Auto) 0.0 Baso # (Auto) 0.0 Abs Immat Gran (auto) 0.06 H Absolute Neuts (auto) 10.0 H Absolute Nucleated RBC 0.000 Nucleated RBC % (auto) 0.0 O2 Saturation 90.0 ABG pH at Pt Temp 7.37 ABG pCO2 at Pt Temp 36 ABG pO2 at Pt Temp 57 L ABG HCO3 21 L ABG Base Excess (Actual) -2.9 VBG pH 7.50 H VBG pCO2 28 VBG pO2 68 VBG HCO3 22 VBG O2 Saturation 97.0 VBG Base Excess 0.7 Sodium 144 Potassium 4.3 Chloride 110 H Carbon Dioxide 23 Anion Gap 15 BUN 14 Creatinine 0.66 Estim Creat Clear Calc 89.8 Estimated GFR > 60 Random Glucose 104 Calcium 8.0 L Phosphorus Magnesium Total Bilirubin 0.3 AST 16 ALT 13 Alkaline Phosphatase 93 Total Protein 6.6 Albumin 3.9 09/08/23 09/08/23 04:31 04:35 WBC 12.3 H RBC 4.30 Hgb 12.3 Hct 38.0 MCV 88.4 MCH 28.6 MCHC 32.4 RDW 13.2 Plt Count 250 MPV 11.5 Immature Gran % (Auto) 0.5 H Neut % (Auto) 74.2 H Lymph % (Auto) 14.9 L [place] % (Auto) 7.5 Eos % (Auto) 2.6 Baso % (Auto) 0.3 Lymph # (Auto) 1.8 [place] # (Auto) 0.9 Eos # (Auto) 0.3 Baso # (Auto) 0.0 Abs Immat Gran (auto) 0.06 H Absolute Neuts (auto) 9.2 H Absolute Nucleated RBC 0.000 Nucleated RBC % (auto) 0.0 O2 Saturation ABG pH at Pt Temp ABG pCO2 at Pt Temp ABG pO2 at Pt Temp ABG HCO3 ABG Base Excess (Actual) VBG pH 7.43 VBG pCO2 37 VBG pO2 50 VBG HCO3 25 VBG O2 Saturation 85.0 VBG Base Excess 1.2 Sodium 145 Potassium 3.8 Chloride 112 H Carbon Dioxide 24 Anion Gap 13 BUN 11 Creatinine 0.68 Estim Creat Clear Calc 87.1 Estimated GFR > 60 Random Glucose 111 Calcium 8.0 L Phosphorus 2.3 L Magnesium 2.2 Total Bilirubin AST ALT Alkaline Phosphatase Total Protein Albumin 3.8 Microbiology Microbiology Results: Microbiology 09/06/23 21:39 Blood - Venous Blood Culture - Preliminary No growth after 24 hours. 09/06/23 21:32 Blood - Venous Blood Culture - Preliminary No growth after 24 hours. Progress Note: A&P Assessment and plan (1) Pneumonia: Status: Acute (2) Acute hypoxic respiratory failure: Status: Acute Plan Assessment: 63-year-old lady admitted with respiratory distress, metabolic acidosis, and acute hypoxic respiratory failure with possible developing pneumonia. Plan: Neuro: No acute issues. Cardiac: No acute issues. Pulmonary: Titrated off BiPAP. CT chest reviewed. Empirically treated for community-acquired pneumonia with Levaquin. No evidence of pulmonary embolism. Continue to titrate off supplemental oxygen as tolerated. Renal: Metabolic acidosis of unclear etiology, may be related to overzealous treatment with albuterol with development of lactic acidosis, resolved. Continue to monitor renal indices and urine output. Endo: No acute issues. GI: No acute issues. ID: As per Pulmonary section Heme/Onc: No acute issues. Psych: No acute issues. Miscellaneous: No acute issues. Prophylaxis: Heparin Diet: Regular Quality Stroke Does the patient have a stroke diagnosis?: No VTE Prior VTE?: No VTE Risk Level:: Medical - moderate - high VTE Device Contraindication: Treatment Not Indicated VTE Drug Contraindication: N/A - Med Ordered
--- NOTE | 2023-09-08 09:56 | P.CDIM_ITS ---
PROVIDER RESPONSE TEXT: To clarify, the appropriate diagnosis supported by the clinical indicators: Acute QUERY TEXT: PHYSICIAN'S DOCUMENTATION REQUEST Date of Query: 09/08/2023 09:37 AM EST Patient Name: Jerri Gee Admit Date: 09/07/2023 Dear Shaquille Moses, A review of the medical record indicates additional documentation may be needed. Please review below and update the documentation accordingly. Clinical Indicators: ICU H and P - Plan: Metabolic acidosis of unclear etiology, may be related to albuterol with developm ent of lactic acidosis: LA 3.4 H Acuity of a documented diagnosis within the body of the Plan: metabolic acidosis/lactic acidosis Acute Acute on chronic Other (explain) Clinically unable to determine (explain) Thank you, Tangela Booth, CCS, CDIS Use of terms such as suspected, likely, concern for, or probable (associated with a specific diagnosi s that is being evaluated, monitored, or treated as if it exists) are acceptable and can be coded in the inpatient se tting, when documented at the time of discharge. Please use your independent medical judgment in providing your response. THIS QUERY IS PART OF THE PERMANENT MEDICAL RECORD
[2023-09-08] MEDS: levoFLOXacin/D5W 750 MG/150 ML PIGGYBACK 100 MG IV (11:51)
[2023-09-08] MEDS: Metoprolol Succinate ER 100 MG TAB.ER.24H 200 MG PO (14:14)
[2023-09-08] MEDS: Sertraline HCL 100 MG TABLET PO (16:21)
[2023-09-08] MEDS: Spironolactone 25 MG TABLET 50 MG PO (21:32)
[2023-09-09 04:00] VITALS: BP 147/71; PULSE 72; RESP 16; TEMP 36.3; O2SAT 93
[2023-09-09 06:27] LABS: MANUAL DIFF FLAG NO
[2023-09-09 06:29] LABS: Basophils Percent Auto 0.4 % (0-2); Eosinophils Absolute Auto 0.5 X10*3/uL (0.0-0.4); Eosinophils Percent Auto 6.1 % (0-4); Hemoglobin 12.8 g/dl (12.0-16.0); Imm Gran Abs Auto 0.03 X10*3/uL (0.00-0.03); Imm Gran Pct Auto 0.4 % (0.0-0.4); Lymphocytes Absolute Auto 2.7 X10*3/uL (1.2-4.9); Lymphocytes Percent Auto 33.8 % (20-40); Mean Corpuscular HGB Conc 32.8 g/dl (31.0-35.0); Mean Corpuscular Hemoglobin 28.2 pg (27.0-33.0); Mean Corpuscular Volume 85.9 fL (80.0-98.0); Mean Platelet Volume 10.7 fL (9.4-12.3); Monocytes Absolute Auto 0.6 X10*3/uL (0.1-1.2); Monocytes Percent Auto 7.3 % (2-11); Neutrophils Absolute Auto 4.2 x10*3/uL (2.0-8.3); Platelet Count 231 X10*3/uL (160-400); Red Blood Count 4.54 X10*6/uL (4.20-5.50); Red Cell Distribution Width 13.1 % (11.0-16.0); White Blood Count 8.1 X10*3/uL (4.8-10.8)
[2023-09-09 06:35] LABS: Venous Blood Gas Refer to POC result
[2023-09-09 06:36] LABS: VBG Base Excess 3.3 mmol/L; VBG HCO3 27 mmol/L (22-26); VBG pCO2 40 mmHg; VBG pH 7.44 (7.32-7.43); VBG pO2 47 mmHg
[2023-09-09 06:43] LABS: Albumin Level 3.8 g/dL (3.5-5.0); Anion Gap 12 (12-20); Blood Urea Nitrogen 10 mg/dL (9-16); Calcium 8.4 mg/dL (8.4-10.2); Carbon Dioxide 26 mmol/L (22-29); Chloride 109 mmol/L (96-108); Creatinine Clr Calc Pharmacy 86.1; Estimated Glomerular Filt Rate > 60; Glucose Random 99 mg/dL (60-115); Magnesium 2.1 mg/dL (1.6-2.6); Phosphorus 2.2 mg/dL (2.7-4.5); Potassium 3.6 mmol/L (3.3-5.1); Sodium 143 mmol/L (135-145)
[2023-09-09 07:31] VITALS: BP 144/76; PULSE 77; RESP 18; TEMP 36.8; O2SAT 94
[2023-09-09 08:29] VITALS: O2SAT 91
--- NOTE | 2023-09-09 08:40 | HO.PM.IMPN ---
Subjective Subjective Date of Service: 09/09/23 Interval History: sob improving Physical Exam Vital Signs: Vital Signs: Last Vital Signs Temp 98.3 F 09/09/23 07:31 Pulse 77 09/09/23 07:31 Resp 18 09/09/23 07:31 BP 144/76 H 09/09/23 07:31 Pulse Ox 91 L 09/09/23 08:29 O2 Del Method Room Air 09/09/23 08:29 O2 Flow Rate 2 09/09/23 07:31 FiO2 36 09/07/23 10:05 Oxygen Flow Rate 8 09/07/23 11:22 BMI result Body Mass Index 34.8 General: AO X 3, no acute distress Resp: rhonchi bilateral, no accessory muscles used CVS: S1,S2,RRR GI: soft, non tender, non distended Neuro: motor grossly intact, alert Psych: appropriate affect, appropriate insight Objective Data Active Medications Albuterol Sulfate (Albuterol Sulfate 90 Mcg 8 Gm Inhaler) 2 puff INHALE RQ4H PRN PRN Reason: sob Amlodipine Besylate (Amlodipine Besylate 10 Mg Tablet) 10 mg PO DAILY [facility]; Protocol Cyanocobalamin (Cyanocobalamin (Vitamin B-12) 1,000 Mcg Tablet) 1,000 mcg PO DAILY [facility] Heparin Sodium (Porcine) (Heparin Sodium,Porcine 5,000 Unit/Ml Vial) 5,000 unit SUBCUT Q8H [facility] Last Admin: 09/08/23 23:03 Dose: 5,000 unit Documented By: JORGE ALBERTO Levofloxacin (Levaquin) 750 mg in 150 mls @ 100 mls/hr IV Q24H [facility] Last Infusion: 09/08/23 14:32 Dose: Infused Documented By: DEVAN Metoprolol Succinate (Metoprolol Succinate Er 100 Mg Tab.Er.24h) 200 mg PO DAILY [facility]; Protocol Last Admin: 09/08/23 14:14 Dose: 200 mg Documented By: DEVAN Pravastatin Sodium (Pravastatin Sodium 40 Mg Tablet) 40 mg PO DAILY [facility] Sertraline HCl (Sertraline Hcl 100 Mg Tablet) 100 mg PO DAILY [facility] Last Admin: 09/08/23 16:21 Dose: 100 mg Spironolactone (Spironolactone 25 Mg Tablet) 50 mg PO BID [facility] Last Admin: 09/08/23 21:32 Dose: 50 mg Documented By: JORGE ALBERTO Vitamin D (Cholecalciferol (Vitamin D3) 25 Mcg Tablet) 50 mcg PO DAILY [facility] Labs 09/09/23 06:22 09/09/23 06:22 Labs: Laboratory Results - last 24 hr 09/09/23 09/09/23 06:22 06:25 MCV 85.9 MCH 28.2 MCHC 32.8 RDW 13.1 Plt Count 231 MPV 10.7 Immature Gran % (Auto) 0.4 Neut % (Auto) 52.0 Lymph % (Auto) 33.8 [place] % (Auto) 7.3 Eos % (Auto) 6.1 H Baso % (Auto) 0.4 Lymph # (Auto) 2.7 [place] # (Auto) 0.6 Eos # (Auto) 0.5 H Baso # (Auto) 0.0 Abs Immat Gran (auto) 0.03 Absolute Neuts (auto) 4.2 Absolute Nucleated RBC 0.000 Nucleated RBC % (auto) 0.0 VBG pH 7.44 H VBG pCO2 40 VBG pO2 47 VBG HCO3 27 H VBG O2 Saturation 79.0 VBG Base Excess 3.3 Anion Gap 12 Estim Creat Clear Calc 86.1 Estimated GFR > 60 Random Glucose 99 Calcium 8.4 Phosphorus 2.2 L Magnesium 2.1 Albumin 3.8 Microbiology Microbiology Results: Microbiology 09/06/23 21:39 Blood Culture - Preliminary Blood - Venous No growth after 48 hours. 09/06/23 21:32 Blood Culture - Preliminary Blood - Venous No growth after 48 hours. Assessment and Plan (1) Acute hypoxic respiratory failure: Status: Acute Plan 64F PMH htn, hyperparathyroid s/p parathyroidectomy jul 2023 presented with sob, admitted to icu for bipap, ct chest with pneumonia, treated with levaquin, weaned to 1L o2 and downgraded 09/08/23 Acute hypoxic respiratory failure secondary to atypical pneumonia Continue Levaquin Wean O2 as tolerated Hypertension Amlodipine, Toprol DVT prophylaxis with heparin subQ Full code reason for continued hospitalization:weaning o2 Quality Stroke Does the patient have a stroke diagnosis?: No VTE Prior VTE?: No VTE Risk Level:: Medical - moderate - high VTE Device Contraindication: Treatment Not Indicated VTE Drug Contraindication: N/A - Med Ordered
[2023-09-09] MEDS: Metoprolol Succinate ER 100 MG TAB.ER.24H 200 MG PO (08:44)
[2023-09-09] MEDS: amLODIPine Besylate 10 MG TABLET PO (08:44)
[2023-09-09] MEDS: Spironolactone 25 MG TABLET 50 MG PO ×2 (08:44→20:46)
[2023-09-09] MEDS: Sertraline HCL 100 MG TABLET PO (08:45)
[2023-09-09] MEDS: Cyanocobalamin (Vitamin B-12) 1,000 MCG TABLET 1000 MCG PO (08:46)
[2023-09-09] MEDS: Pravastatin Sodium 40 MG TABLET PO (08:46)
[2023-09-09] MEDS: Cholecalciferol (Vitamin D3) 25 MCG TABLET 50 MCG PO (08:47)
[2023-09-09] MEDS: Heparin Sodium,Porcine 5,000 UNIT/ML VIAL 5000 UNIT SUBCUT ×3 (08:48→23:55)
[2023-09-09] MEDS: levoFLOXacin/D5W 750 MG/150 ML PIGGYBACK 100 MG IV (10:59)
--- NOTE | 2023-09-09 11:25 | PC.NURSE ---
Attempted to flush left forearm IV resistance noted, Pt complained of pain at insertion site, IV removed.IV catheter tip intact.
--- NOTE | 2023-09-09 11:34 | MHC.CM.PN ---
PT REPORTS SHE LIVES WITH HER MOTHER AND IS INDEPENDENT WITH CARE SHE USES NO DME AND HAS NO HOME SERVICES SHE COMPLETED A HCP TODAY NAMING HER MOTHER AND DAUGHTER HER AGENTS SHE REPORTS HER PCP IS RAJ DUFFY AT [facility] IN [facility] DCP: HOME NO SERVICES VIA FAMILY TRANSPORT
[2023-09-09] MEDS: Albuterol Sulfate 90 MCG 8 GM INHALER 2 PUFF INHALE ×2 (11:43→15:51)
[2023-09-09 15:20] VITALS: BP 131/60; PULSE 73; RESP 18; TEMP 36.1; O2SAT 94
[2023-09-09 18:56] VITALS: BP 146/74; PULSE 79; RESP 18; TEMP 36; O2SAT 94
[2023-09-10 04:00] VITALS: BP 144/83; PULSE 70; RESP 69; TEMP 36; O2SAT 93
[2023-09-10 07:26] VITALS: BP 150/72; PULSE 69; RESP 18; TEMP 37.2; O2SAT 93
[2023-09-10] MEDS: Cyanocobalamin (Vitamin B-12) 1,000 MCG TABLET 1000 MCG PO (08:30)
[2023-09-10] MEDS: Cholecalciferol (Vitamin D3) 25 MCG TABLET 50 MCG PO (08:30)
[2023-09-10] MEDS: Metoprolol Succinate ER 100 MG TAB.ER.24H 200 MG PO (08:30)
[2023-09-10] MEDS: Spironolactone 25 MG TABLET 50 MG PO (08:31)
[2023-09-10] MEDS: Pravastatin Sodium 40 MG TABLET PO (08:31)
[2023-09-10] MEDS: Heparin Sodium,Porcine 5,000 UNIT/ML VIAL 5000 UNIT SUBCUT (08:31)
[2023-09-10] MEDS: Sertraline HCL 100 MG TABLET PO (08:31)
[2023-09-10] MEDS: amLODIPine Besylate 10 MG TABLET PO (08:31)
[2023-09-10 08:35] VITALS: PULSE 70; O2SAT 93
--- NOTE | 2023-09-10 09:45 | P.DS_ITS ---
DS: Providers Provider Date of Service: 09/10/23 Date of admission: 09/07/23 08:01 Primary care physician: Unknown Physician DS: Diagnosis Discharge Diagnosis (1) Acute hypoxic respiratory failure: Status: Acute DS: Summary Hospital Course Hospital Course: from initial hpi: 64-year-old lady with underlying history of hypertension and thyroid surgery in the beginning of July admitted on 09/07/2023 with 1 week history of upper respiratory symptoms and cough productive of whitish sputum. On ER evaluation patient is significantly dyspnea with increased work of breathing and metabolic acidosis requiring BiPAP support. Initially unable to titrate of BiPAP and adm itted to intensive care unit. In the intensive care unit patient titrated down to [address] abdomen pelvis with no acute findings. CT chest with possible developping pneumonia. Patient treated with empiric Levaquin. hospital course: Patient was admitted for acute hypoxic respiratory failure secondary to atypical pneumonia. She was initially admitted to the ICU for BiPAP. She was treated with levofloxacin and able to be weaned off and downgraded to medical floor. She was subsequently weaned off oxygen and able to ambulate on room air with minimal shortness of breath she will be discharged on 7 more days of levofloxacin and repeat chest x-ray in 3 weeks for hypertension was continued on amlodipine and metoprolol. Time Attestation Discharge coordination time: Greater than 30 minutes Quality: Safe Use of Opioids Does Pt have an Active Cancer Diagnosis on the Problem List?: No Quality: Stroke Does the patient have a stroke diagnosis?: No Physical Exam Vital Signs: Vital Signs: Last Vital Signs Temp 98.9 F 09/10/23 07:26 Pulse 70 09/10/23 08:35 Resp 18 09/10/23 07:26 BP 150/72 H 09/10/23 07:26 Pulse Ox 93 09/10/23 08:35 O2 Del Method Room Air 09/10/23 08:35 O2 Flow Rate 1 09/10/23 07:26 FiO2 36 09/07/23 10:05 Oxygen Flow Rate 8 09/07/23 11:22 BMI result Body Mass Index 34.8 General: AO X 3, no acute distress Resp: CTA bilateral, no accessory muscles used CVS: S1,S2,RRR GI: soft, non tender, non distended Neuro: motor grossly intact, alert Psych: appropriate affect, appropriate insight DS: Data Data Completed and Pending Labs on day of discharge: Preliminary micro results at discharge 09/06/23 21:39 Blood Culture - Preliminary Blood - Venous No growth after 48 hours. 09/06/23 21:32 Blood Culture - Preliminary Blood - Venous No growth after 48 hours. Discharge Plan Discharge Anticipated Discharge Date/Time: 09/10/23 09:42 Patient Disposition: Home, Self-Care Discharge Diagnosis: pneumonia Referrals: Physician,Unknown J [Primary Care Provider] - 1 Week Discharge Medications: New levofloxacin 500 mg tablet 500 mg PO DAILY Qty: 7 0RF Continued pravastatin 40 mg tablet 40 mg PO DAILY methylphenidate HCl 5 mg tablet 5 mg PO BID PRN (Reason: ATTENTION) metoprolol succinate 100 mg tablet extended release 24 hr 200 mg PO DAILY sertraline 100 mg tablet 100 mg PO DAILY amiloride 5 mg tablet 10 mg PO DAILY amlodipine 10 mg tablet 10 mg PO DAILY albuterol sulfate 90 mcg/actuation HFA aerosol inhaler 2 puff INHALATION QID PRN (Reason: wheezing) loperamide 2 mg Capsule 2 mg PO QID PRN (Reason: Diarrhea) cyanocobalamin (vitamin B-12) [Vitamin B-12] 1,000 mcg Tablet 1,000 mcg PO DAILY ibuprofen 200 mg Tablet 400 mg PO Q8H PRN (Reason: Headache) calcium citrate 200 mg (950 mg) Tablet 200 mg PO DAILY coenzyme Q10 [Co Q-10] 200 mg Capsule 200 mg PO DAILY cholecalciferol (vitamin D3) [Vitamin D3] 50 mcg (2,000 unit) Tablet 50 mcg PO DAILY Discharge Orders: Discharge Order (Routine); Ordered 09/10/23 Ordered By: Scott Roman Diet: Advance to usual diet Activity on Discharge: As tolerated Stand Alone Forms: Patient Portal Discharge page, Work/School Release Other Ambulatory Orders: XR chest 1V (Routine) Timeframe: 3 Weeks Facility: [facility] - Location: Radiology Ordered By: Scott Roman Care Plan Goals: recovery Health Concerns: penumonia Plan of Treatment: 7 more days levaquin, repeat cxr in 3 weeks Assessment: see above
--- NOTE | 2023-09-10 10:27 | MHC.CM.PN ---
pt dcd home no servies
== END 2023-09-10 10:39 | disposition home or self-care (01) | DRG 139 ==
LOC: HO.ED 09-07 07:15 → HO.EDOVER 09-07 09:16 → HO.ICU 09-07 09:18 → HO.S3 09-08 10:19
PROVIDERS: Student in an Organized Health Care Education/Training Program; Admitting Provider Internal Medicine Pulmonary Disease; Emergency Provider Emergency Medicine Emergency Medical Services; Visit Provider Internal Medicine
DX: J18.9 Pneumonia, unspecified organism (principal); J96.01 Acute respiratory failure with hypoxia; E87.21 Acute metabolic acidosis; I10 Essential (primary) hypertension; Z20.822 Contact with and (suspected) exposure to COVID-19; Z87.891 Personal history of nicotine dependence; Z79.899 Other long term (current) drug therapy
CPT/HCPCS: 0241U; 36415; 36600; 70491; 71045; 71275; 74176; 80048; 80053; 80143; 80179; 80307; 81001; 82040; 82803; 83605; 83735; 83880; 84100; 84443; 84484; 85025; 87040; 93005; 94640; 94799; 99285; J0613; J0696; J1644; J1940; J1956; J2060; J2270; J2930; Q9967

== ENCOUNTER → 2023-09-06 20:15 | Outpatient (BNV) | payer BC, SELFPAY | PROVIDERS: Admitting Provider Internal Medicine Pulmonary Disease; Emergency Provider Emergency Medicine Emergency Medical Services; Visit Provider Internal Medicine Cardiovascular Disease | DX: R06.02 Shortness of breath (principal); R94.31 Abnormal electrocardiogram [ECG] [EKG] | CPT/HCPCS: 93010 ==

== ENCOUNTER → 2023-09-07 08:01 | Outpatient (BNV) | payer BC, SELFPAY | PROVIDERS: Admitting Provider Internal Medicine Pulmonary Disease; Emergency Provider Emergency Medicine Emergency Medical Services; Visit Provider Internal Medicine | DX: J96.01 Acute respiratory failure with hypoxia (principal); J18.9 Pneumonia, unspecified organism | CPT/HCPCS: 99232; 99238 ==

== ENCOUNTER → 2023-09-07 08:01 | Outpatient (BNV) | payer BC, SELFPAY | PROVIDERS: Admitting Provider Internal Medicine Pulmonary Disease; Emergency Provider Emergency Medicine Emergency Medical Services; Visit Provider Internal Medicine Pulmonary Disease | DX: J18.9 Pneumonia, unspecified organism (principal); J96.01 Acute respiratory failure with hypoxia | CPT/HCPCS: 99223; 99232 ==

== ENCOUNTER 2023-09-12 00:39 | Emergency (ER) | payer BC, SELFPAY ==
--- NOTE | ~2023-09-12 | XR_ITS ---
EXAMINATION: XR CHEST CLINICAL INFORMATION: Shortness of breath. COMPARISON: 09/06/2023 TECHNIQUE: Frontal view of the chest was obtained. FINDINGS: No significant abnormality is noted involving the heart, lungs, mediastinum, bony thorax or soft tissues. XR/XR chest 1V IMPRESSION: Unremarkable examination.
--- NOTE | 2023-09-12 00:46 | ECG_ITS ---
Test Reason : SOB Blood Pressure : / mmHG Vent. Rate : 078 BPM Atrial Rate : 078 BPM P-R Int : 154 ms QRS Dur : 082 ms QT Int : 412 ms P-R-T Axes : 059 051 059 degrees QTc Int : 469 ms Normal sinus rhythm Normal ECG When compared with ECG of 06-SEP-2023 20:24, ST no longer depressed in Inferior leads Referred By: Generic ED Physician Electronically Signed By:William Jean
[2023-09-12 00:49] VITALS: BP 132/86; PULSE 89; RESP 16; TEMP 36.4; O2SAT 94; BMI 34.5
[2023-09-12 01:16] LABS: MANUAL DIFF FLAG NO
[2023-09-12 01:17] LABS: Basophils Absolute Auto 0.1 X10*3/uL (0.0-0.2); Basophils Percent Auto 0.6 % (0-2); Eosinophils Absolute Auto 0.6 X10*3/uL (0.0-0.4); Eosinophils Percent Auto 5.6 % (0-4); Hematocrit 41.7 % (37.0-47.0); Hemoglobin 13.7 g/dl (12.0-16.0); Imm Gran Abs Auto 0.04 X10*3/uL (0.00-0.03); Imm Gran Pct Auto 0.4 % (0.0-0.4); Lymphocytes Absolute Auto 3.3 X10*3/uL (1.2-4.9); Lymphocytes Percent Auto 30.6 % (20-40); Mean Corpuscular HGB Conc 32.9 g/dl (31.0-35.0); Mean Corpuscular Hemoglobin 28.1 pg (27.0-33.0); Mean Corpuscular Volume 85.6 fL (80.0-98.0); Monocytes Absolute Auto 0.8 X10*3/uL (0.1-1.2); Monocytes Percent Auto 7.2 % (2-11); Neutrophils Percent Auto 55.6 % (45-73); Platelet Count 338 X10*3/uL (160-400); Red Blood Count 4.87 X10*6/uL (4.20-5.50); Red Cell Distribution Width 12.8 % (11.0-16.0); White Blood Count 10.8 X10*3/uL (4.8-10.8)
[2023-09-12 01:34] LABS: Anion Gap 13 (12-20); Blood Urea Nitrogen 12 mg/dL (9-16); Calcium 9.2 mg/dL (8.4-10.2); Carbon Dioxide 22 mmol/L (22-29); Chloride 112 mmol/L (96-108); Creatinine Clr Calc Pharmacy 78.9; Estimated Glomerular Filt Rate > 60; Glucose Random 114 mg/dL (60-115); Potassium 3.7 mmol/L (3.3-5.1); Sodium 143 mmol/L (135-145)
[2023-09-12 01:41] LABS: Troponin-I High Sensitivity < 2.7 ng/L (<3.5-17.0)
--- NOTE | 2023-09-12 01:56 | ED.SOB ---
HPI - SOB/Dyspnea General Chief Complaint: Dyspnea Stated Complaint: breathing/tightness in chest Time Seen by Provider: 09/12/23 01:46 Source: patient Mode of arrival: ambulatory Limitations: no limitations History of Present Illness HPI Narrative: Patient comes to the emergency room complaining of mild shortness of breath. Patient was discharged from the hospital for pneumonia 2 days ago. Patient was sent home with Mohinder. Patient states that she does not have history of asthma or COPD. Patient denies any fever chills. At this time, patient states that she is sitting upright she feels better. Related Data Home Medications Medication Instructions Recorded Confirmed albuterol sulfate 90 mcg/actuation 2 puff inhalation QID PRN wheezing 09/07/23 09/07/23 aerosol inhaler amiloride 5 mg tablet 10 mg PO DAILY 09/07/23 09/07/23 amlodipine 10 mg tablet 10 mg PO DAILY 09/07/23 09/07/23 calcium citrate 200 mg (950 mg) 200 mg PO DAILY 09/07/23 09/07/23 tablet cholecalciferol (vitamin D3) 50 50 mcg PO DAILY 09/07/23 09/07/23 mcg (2,000 unit) tablet (Vitamin D3) coenzyme Q10 200 mg capsule (Co 200 mg PO DAILY 09/07/23 09/07/23 Q-10) cyanocobalamin (vitamin B-12) 1,000 mcg PO DAILY 09/07/23 09/07/23 1,000 mcg tablet (Vitamin B-12) ibuprofen 200 mg tablet 400 mg PO Q8H PRN Headache 09/07/23 09/07/23 loperamide 2 mg capsule 2 mg PO QID PRN Diarrhea 09/07/23 09/07/23 methylphenidate HCl 5 mg tablet 5 mg PO BID PRN ATTENTION 09/07/23 09/07/23 metoprolol succinate 100 mg 200 mg PO DAILY 09/07/23 09/07/23 tablet,extended release 24 hr pravastatin 40 mg tablet 40 mg PO DAILY 09/07/23 09/07/23 sertraline 100 mg tablet 100 mg PO DAILY 09/07/23 09/07/23 Previous Rx's Medication Instructions Recorded levofloxacin 500 mg tablet 500 mg PO DAILY #7 tabs 09/10/23 prednisone 50 mg tablet 50 mg PO DAILY #4 tabs 09/12/23 Allergies Allergy/AdvReac Type Severity Reaction Status Date / Time No Known Allergies Allergy Verified 09/06/23 20:41 Review of Systems Review of Systems: Constitutional : No Weight loss, No Fever, No Chills, No Night Sweats, No Fatigue, No Malaise ENT/Mouth : No Hearing loss, No Ear Pain, No Nasal Congestion, No Sinus Pain, No Hoarseness, No sore throat, No Rhinorrhea, No Swallowing Difficulty Eyes: No Eye Pain, No Swelling, No Redness, No Foreign Body, No Discharge, No Vision Changes Cardiovascular : No Chest Pain, No SOB, No Dyspnea on Exertion, No Orthopnea, No Edema, No Palpitations Respiratory : Complaining of an ongoing cough, mild shortness of breath Gastrointestinal : No Nausea, No Vomiting, No Diarrhea, No Constipation, No abdominal Pain, No Hematochezia, No Melena Genitourinary : no irregular bleeding, No Dysuria, No Urinary Frequency, No Hematuria, No Urinary Incontinence, No Urgency, No Flank Pain, No Urinary Flow Changes, No Hesitancy Musculoskeletal : No joint pain, No Myalgias, No Joint Swelling Skin : No Skin Lesions, No rash Neuro : No Weakness, No Numbness, No Paresthesias, No Loss of Consciousness, No Dizziness, No Headache Psych : No Anxiety/Panic, No Depression, No SI/HI/AH/VH, No Social Issues, Heme/Lymph: No Bruising, No Bleeding,No Lymphadenopathy Endocrine : No Polyuria, No Polydipsia, No Temperature Intolerance [facility] Past Medical History Medical History (Updated 09/12/23 @ 02:06 by Niurka Wiggins MD) Acute hypoxic respiratory failure Social History Social History Household Members: Family Household Members Other:: 1 Housing: Condominium Do you presently have visiting nurse or other home services: No Patient Tobacco Use Status: Former Tobacco user Quit Date: 30 years ago Tobacco use type: Cigarette Cigarette Packs Per Day: 1 Cigarettes Per Day: 20.0 Years Smoked: 10 e-Cigarette/Vaping Use: Never Used Second Hand Smoke Exposure: No Advance Directives: No Advance Directives Information Provided: No service: No Physical Exam Vital Signs: Vital Signs: Last Vital Signs Temp 97.5 F 09/12/23 00:49 Pulse 89 09/12/23 00:49 Resp 16 09/12/23 00:49 BP 132/86 09/12/23 00:49 Pulse Ox 94 09/12/23 00:49 O2 Del Method Room Air 09/12/23 00:49 BMI result Body Mass Index 34.5 Const: Other: Appearance: Alert. Oriented X3. No acute distress. Well-appearing Eyes: Pupils equal, round and reactive to light. ENT: Pharynx normal. Neck: Normal inspection. Neck supple. No lymph nodes noted. No crepitus CVS: Normal heart rate and rhythm. Pulses normal. Normal S1 and S2 Respiratory: No respiratory distress. Very mild occasional wheezing, no rales or crackles, no friction rub Abdomen: Soft and nontender. No rigidity. No distention. Skin: Skin warm and dry. Normal skin color. Normal skin turgor. Extremities: No lower extremity edema. No Lacerations. No Rash Neuro: Oriented X 3. No motor deficit. No sensory deficit. Moving all extremities. No slurred speech. CN 2 through 12 grossly intact Psych: calm, cooperative, normal affect Medical Decision Making Medical Decision Making [facility] Narrative: My interpretation of labs: Hematology and chemistry normal, troponin normal -my interpretation of chest x-ray: No pneumonia, improved from previous ER visit. -very mild wheezing, given 1 nebulization treatment and prednisone. Patient does not have asthma by would likely benefit from a short course of steroids as patient likely developed bronchitis. Differential Diagnosis Differential Diagnoses: The differential diagnosis associated with the presentation includes (As above) Lab Data [facility] Lab Attestation statement: I reviewed the patient's lab results. 09/12/23 01:10 09/12/23 01:10 Labs: Lab Results 09/12/23 Range/Units 01:10 WBC 10.8 (4.8-10.8) X10*3/uL RBC 4.87 (4.20-5.50) X10*6/uL Hgb 13.7 (12.0-16.0) g/dl Hct 41.7 (37.0-47.0) % MCV 85.6 (80.0-98.0) fL MCH 28.1 (27.0-33.0) pg MCHC 32.9 (31.0-35.0) g/dl RDW 12.8 (11.0-16.0) % Plt Count 338 D (160-400) X10*3/uL MPV 11.0 (9.4-12.3) fL Immature Gran % (Auto) 0.4 (0.0-0.4) % Neut % (Auto) 55.6 (45-73) % Lymph % (Auto) 30.6 (20-40) % [place] % (Auto) 7.2 (2-11) % Eos % (Auto) 5.6 H (0-4) % Baso % (Auto) 0.6 (0-2) % Lymph # (Auto) 3.3 (1.2-4.9) X10*3/uL [place] # (Auto) 0.8 (0.1-1.2) X10*3/uL Eos # (Auto) 0.6 H (0.0-0.4) X10*3/uL Baso # (Auto) 0.1 (0.0-0.2) X10*3/uL Abs Immat Gran (auto) 0.04 H (0.00-0.03) X10*3/uL Absolute Neuts (auto) 6.0 (2.0-8.3) x10*3/uL Absolute Nucleated RBC 0.000 (0.0-0.012) X10*3/uL Nucleated RBC % (auto) 0.0 (0.0-0.2) /100WBC Sodium 143 (135-145) mmol/L Potassium 3.7 (3.3-5.1) mmol/L Chloride 112 H (96-108) mmol/L Carbon Dioxide 22 (22-29) mmol/L Anion Gap 13 (12-20) BUN 12 (9-16) mg/dL Creatinine 0.75 (0.5-1.4) mg/dL Estim Creat Clear Calc 78.9 Estimated GFR > 60 Random Glucose 114 (60-115) mg/dL Calcium 9.2 D (8.4-10.2) mg/dL Troponin I High Sens < 2.7 (<3.5-17.0) ng/L Critical Care Time Critical Care Time Critical Care Time: Yes Total Critical Care Time: 30 Attestation: I have personally provided critical care time. Time includes review of lab data, radiology results, discussion with consultants, and monitoring for potential decompensation. Intervention performed as documented. Discharge Plan Discharge Clinical Impression: Wheezing, Bronchitis Patient Disposition: Home, Self-Care Instructions: Acute Bronchitis (ED) Additional Instructions: Continue taking your prescribed antibiotics. Please follow-up with your primary care physician tomorrow. If you have any worsening or new symptoms, please return to the emergency room or call 911 Prescriptions: New prednisone 50 mg tablet 50 mg PO DAILY Qty: 4 0RF No Action pravastatin 40 mg tablet 40 mg PO DAILY methylphenidate HCl 5 mg tablet 5 mg PO BID PRN (Reason: ATTENTION) metoprolol succinate 100 mg tablet extended release 24 hr 200 mg PO DAILY sertraline 100 mg tablet 100 mg PO DAILY amiloride 5 mg tablet 10 mg PO DAILY amlodipine 10 mg tablet 10 mg PO DAILY albuterol sulfate 90 mcg/actuation HFA aerosol inhaler 2 puff INHALATION QID PRN (Reason: wheezing) loperamide 2 mg Capsule 2 mg PO QID PRN (Reason: Diarrhea) cyanocobalamin (vitamin B-12) [Vitamin B-12] 1,000 mcg Tablet 1,000 mcg PO DAILY ibuprofen 200 mg Tablet 400 mg PO Q8H PRN (Reason: Headache) calcium citrate 200 mg (950 mg) Tablet 200 mg PO DAILY coenzyme Q10 [Co Q-10] 200 mg Capsule 200 mg PO DAILY cholecalciferol (vitamin D3) [Vitamin D3] 50 mcg (2,000 unit) Tablet 50 mcg PO DAILY levofloxacin 500 mg tablet 500 mg PO DAILY Qty: 7 0RF
[2023-09-12] MEDS: predniSONE 20 MG TABLET 60 MG PO (01:59)
[2023-09-12] MEDS: Albuterol Sulfate (0.083%) 2.5 MG/3 ML VIAL.NEB INHALE (02:35)
[2023-09-12 03:04] VITALS: O2SAT 92
== END 2023-09-12 03:10 | disposition home or self-care (01) ==
PROVIDERS: Emergency Provider Emergency Medicine
DX: J40 Bronchitis, not specified as acute or chronic (principal); R06.2 Wheezing; R06.02 Shortness of breath; F17.210 Nicotine dependence, cigarettes, uncomplicated; Z79.899 Other long term (current) drug therapy
CPT/HCPCS: 36415; 71045; 80048; 84484; 85025; 93005; 99283; 99284

== ENCOUNTER → 2023-09-12 00:46 | Outpatient (BNV) | payer BC, SELFPAY | PROVIDERS: Emergency Provider Emergency Medicine; Visit Provider Internal Medicine Cardiovascular Disease | DX: R06.02 Shortness of breath (principal) | CPT/HCPCS: 93010 ==